=== PATIENT | male | born 1965 | race Caucasian/White ===

== ENCOUNTER 2020-04-24 23:12 | Emergency (ER) | payer MEDICARE, SELFPAY ==
[2018-05-26 12:41] VITALS: BMI 47.2
[2020-04-24 23:13] VITALS: BP 136/68; PULSE 73; RESP 18; TEMP 36.4; O2SAT 94; BMI 44.7
--- NOTE | 2020-04-24 23:25 | EKG12_ITS ---
Test Reason : CHEST DISCOMFORT Blood Pressure : / mmHG Vent. Rate : 068 BPM Atrial Rate : 068 BPM P-R Int : 278 ms QRS Dur : 090 ms QT Int : 388 ms P-R-T Axes : -06 - - degrees QTc Int : 412 ms Sinus rhythm with 1st degree A-V block Otherwise normal ECG Confirmed by NADER GARCIA, MARIA A ([id number]), editorial director RITCHIE KANG ([id number]) on 04/28/2020 12:32:30 PM Referred By: STORMY Confirmed By:MARIA A DOE MD
--- NOTE | 2020-04-24 23:26 | ED.DCSUM_ITS ---
History of Present Illness Chief Complaint: Chest Pain Informant: Patient Onset: Today Location: Substernal, Left Chest Narrative: Patient is a 54-year-old male with history of diabetes, obesity, hypertension, hyperlipidemia and a heart attack 13 years ago resenting after an episode of feeling like his heart stopped. Patient was getting out of bed to use the restroom when he suddenly felt that his heart stopped. The sensation scared him and he called 911. Patient has a hard time describing the sensation. Does not really describe pain. Patient notes he has had a cough for the past 3 days. He states he has chronic lung disease from a chemical exposure remotely. Patient notes that last week there was a propane leak in their house and he was exposed to propane for 11 days before they could figure it out. Patient notes has been more constipated but denies any abdominal pain. Denies any change in his appetite. He denies any urinary symptoms. No fever or chills. Patient did feel that he was a little clammy when he got out of bed but not sure if there is something going on with him or it was just because he had kicked off all of the blankets and went from being hot to cold. Past Medical History - Allergies and Home Meds Allergies/Adverse Reactions: Allergies amoxicillin Adverse Reaction (Verified 04/24/20 23:16) Rash cephalexin monohydrate [From Keflex] Adverse Reaction (Verified 04/24/20 23:16) Rash Penicillins Adverse Reaction (Verified 04/24/20 23:16) Rash Primary Care Physician: Rolan Harper CHEMICAL RECOVERY OPERATOR, CHEMICAL RECOVERY OPERATOR-C [Primary Care Provider] - Past Medical History: - - Coronary artery disease, hypertension, hyperlipidemia, diabetes mellitus, COPD Surgical History: noncontributory Lives: Spouse/ Significant Other Smoking Status: Never smoker Review of Systems General: Denies: Chills, Fever, Malaise, Sweats Eyes: Denies: Visual changes - bilaterally, Diplopia ENT: Denies: Rhinorrhea, Sore throat Cardiovascular: Reports: Chest pain. Denies: Palpitations, Heart racing Respiratory: Reports: Cough. Denies: Dyspnea, Dyspnea on exertion Gastrointestinal: Reports: Constipation. Denies: Abdominal pain, Nausea, Vomiting, Diarrhea, Melena, Hematochezia Genitourinary: Denies: Dysuria, Hematuria, Frequency Musculoskeletal: Denies: Back pain, Extremity Pain Skin: Denies: Rash, Wounds Neurological: Denies: Headache, Weakness, Numbness Physical Exam Vital Signs/Narrative: Vital Signs Temp Pulse Resp BP Pulse Ox 04/24/20 23:13 97.6 F L 73 18 136/68 H 94 Inital Vital Signs reviewed: Yes General: Well nourished, Well developed, Obese, No Acute Distress Head: Normocephalic, Atraumatic Eyes: Perrl, EOMI ENT: Moist mucous membranes, No rhinorrhea Neck: Supple, Nontender, No JVD Cardiovascular: Regular rate, Regular rhythm, No murmurs Respiratory: No distress, CTA bilaterally, Chest nontender. Negative for: Wheezing, Diminished Abdomen: Soft, Nontender, Nondistended, Normal bowel sounds. Negative for: Guarding, Rebound tenderness Back: Nontender, Normal Inspection Extremities: Nontender, No edema Skin: Normal color, No rash Neurological: Alert, Oriented x3, Cranial nerves II-XII grossly intact, Normal Strength, Normal Sensation Psychological: Normal affect, Normal Mood Diagnostic/Tx/Re-eval Chest X-Ray - ED: 1 View, Read by ED Physician, Right Infiltrate Clinical Impression(s) from Imaging Studies Chest X-Ray 04/24/20 23:35 IMPRESSION: Right basilar infiltrate Electronically Signed: Yuri Lozano DO at 0:00 EST Tel , Service support , Laboratory Data 04/24/20 04/24/20 04/24/20 23:15 23:15 23:15 WBC 6.3 RBC 5.43 Hgb 16.2 Hct 48.6 MCV 89.5 MCH 29.8 MCHC 33.3 RDW Std Deviation 42.1 RDW Coeff of Fox 12.8 Plt Count 204 MPV 10.2 Immature Gran % (Auto) 0.900 Neut % (Auto) 44.5 L Lymph % (Auto) 37.9 Giles % (Auto) 14.1 H Eos % (Auto) 2.1 Baso % (Auto) 0.5 Absolute Neuts (auto) 2.8 Absolute Lymphs (auto) 2.40 Nucleated RBC % 0 Sodium 140 Potassium 3.5 Chloride 104 Carbon Dioxide 29.0 Anion Gap 7 BUN 14 Creatinine 0.87 Estim Creat Clear Calc 99.06 Est GFR (MDRD) Af Amer 117 Est GFR (MDRD) Non-Af 97 BUN/Creatinine Ratio 16.1 Glucose 138 H Calcium 8.4 L Troponin I < 0.015 B-Natriuretic Peptide 5.5 - Rhythm Strip Rhythm Strip: Sinus Rhythm Rate: 68 Ectopy: None - EKG Initial EKG Interpretation: Sinus Rhythm, - - Medical Decision Making Patient evaluated after an episode of feeling like his heart stopped. He did not actually have any chest pain associated with it but is unable to elaborate further. His EKG does not show any acute changes. He is asymptomatic in the ER. He notes he had a cough for 3 days. Chest x-ray shows a right lower lobe infiltrate. Covid test is positive. Patient is ambulate in the ER does not have any hypoxia. He does not have any leukocytosis or other significant electrolyte abnormalities. I have a low suspicion for an actual cardiac event. I suspect his presentation is more consistent with pneumonia and Covid. Patient is not wheezing and has clear breath sounds. I do not think steroids are indicated. He does not require admission at this time. He will be discharged home with a course of doxycycline as I do question of there is a superimposed bacterial pneumonia. Patient is counseled on signs and symptoms requiring return to the emergency room. Encouraged to use a pulse oximeter at home to monitor his O2 saturation. He is instructed to call his primary care doctor tomorrow. Patient verbalizes agreement and understand this plan. Patient discharged home in stable and improved condition. Patient is a candidate for monoclonal antibody therapy. This is arranged prior to his discharge. ED Disposition - Plan for ED Patient: Disposition: Home or Assisted Living Diagnosis: RLL pneumonia, COVID-19 Instructions: Coronavirus Disease 2019 (COVID-19): Overview, Coronavirus Disease 2019 (COVID-19): Caring for Yourself or Others Prescriptions: Doxycycline 100 mg PO BID #13 cap Transmission Status: Received by [id number] Referrals: Rolan Harper NP, CHEMICAL RECOVERY OPERATOR-C [Primary Care Provider] - Additional Instructions: Please return the emergency room if you have any worsening symptoms including difficulty breathing, chest pain or signs of dehydration. Drink lots of fluids. Alternate Tylenol ibuprofen as needed for any symptoms. Use your nebulizer at home as needed. Quarantine for total 14 days from onset of symptoms.
[2020-04-24] MEDS: Aspirin 81 MG TAB.CHEW 324 MG PO (23:31)
--- NOTE | 2020-04-24 23:35 | RAD_ITS ---
STUDY: X-RAY CHEST REASON FOR EXAM: Male, 54 years old. chest pain. PT woke up tonight and had heart palpitations. Palpitations were worse upon standing. Hx of previous heart attack. TECHNIQUE: Single AP portable view of the chest. COMPARISON: 12/24/2015 FINDINGS: Right basilar infiltrate. Lungs are otherwise clear. There is no demonstrated pleural abnormality. Normal size heart. Normal mediastinum and jarrod. Normal visualized pulmonary arteries. Normal visualized aortic arch and descending thoracic aorta. Normal visualized thoracic spine. Normal visualized ribs, clavicles, and shoulders. There is no demonstrated abnormality of the visualized soft tissue structures of the upper abdomen. RAD/Chest 1 View (Portable) IMPRESSION: Right basilar infiltrate Electronically Signed: Yuri Lozano DO at 0:00 EST Tel , Service support ,
[2020-04-24 23:43] LABS: Absolute Neutrophil Count 2.8 X10^3/uL (2.0-7.7); Basophil# 0.03 X10^3/uL; Basophil% 0.5 % (0-1); Eosinophil# 0.13 X10^3/uL; Eosinophils% 2.1 % (0-5); Hematocrit 48.6 % (40-54); Hemoglobin 16.2 g/dL (13.0-16.5); Lymphocyte % 37.9 % (19-41); Mean Corp Hgb Conc 33.3 g/dL (32-36); Mean Corpuscular Hgb 29.8 pg (27.0-32.0); Mean Corpuscular Volume 89.5 fL (80-94); Mean Platelet Vol. 10.2 fl (6.2-12.0); Monocyte# 0.89 X10^3/uL; Monocyte% 14.1 % (0-10); NRBC Flagged by Analyzer 0 % (0-5); Neutrophil # 2.82 X10^3/uL (2.7-7.7); Neutrophil % 44.5 % (47-70); Platelet Count 204 K/mm3 (150-450); RBC Distribution Width CV 12.8 % (11.6-14.6); RBC Distribution Width SD 42.1 fl (35.1-43.9); Red Blood Count 5.43 M/mm3 (4.6-6.2); White Blood Count 6.3 K/mm3 (4.4-11.0)
[2020-04-24 23:47] LABS: Anion Gap 7 (5-15); BUN 14 mg/dL (7-18); BUN/Creat Ratio 16.1 RATIO (10-20); Calcium,Total 8.4 mg/dL (8.5-10.1); Chloride 104 mmol/L (98-107); Creatinine, Serum 0.87 mg/dL (0.70-1.30); EST Glomerular Filtration Rate 97 mL/min (>60); Est Glom Filt Rate - Afr Amer 117 mL/min (>60); Estimated Creatinine Clearance 99.06 ml/min; Glucose 138 mg/dL (74-106); Potassium 3.5 mmol/L (3.5-5.1); Sodium Level 140 mmol/L (136-145)
[2020-04-25 00:07] LABS: BNP,B-Type NATRIURETIC PEPTIDE 5.5 pg/mL (0-100)
[2020-04-25 00:13] VITALS: BP 121/67; PULSE 65; RESP 18; O2SAT 98
[2020-04-25 00:49] VITALS: O2SAT 97
[2020-04-25 01:00] VITALS: BP 120/65; PULSE 70; RESP 19; O2SAT 97
[2020-04-25] MEDS: Doxycycline 100 MG CAPSULE PO (01:54)
== END 2020-04-25 01:56 | disposition home or self-care (01) ==
PROVIDERS: Emergency Provider Emergency Medicine; PCP Nurse Practitioner Primary Care
DX: U07.1 COVID-19 (principal); J12.82 Pneumonia due to coronavirus disease 2019; J44.0 Chronic obstructive pulmonary disease with (acute) lower respiratory infection; I25.10 Atherosclerotic heart disease of native coronary artery without angina pectoris; E11.9 Type 2 diabetes mellitus without complications; I10 Essential (primary) hypertension; E78.5 Hyperlipidemia, unspecified; K59.00 Constipation, unspecified; E66.9 Obesity, unspecified; Z79.899 Other long term (current) drug therapy; I25.2 Old myocardial infarction
CPT/HCPCS: 71045; 80048; 83880; 84484; 85025; 87426; 93005; 99285; A4216

== ENCOUNTER → 2021-10-26 | Outpatient (CLI) | payer MEDICARE, SELFPAY ==
[2021-10-26 08:30] LABS: CREATININE FINGERSTICK < 0.9 mg/dL (0.70-1.30); EGFR FINGERSTICK > 60.0000 mL/min (>60)
--- NOTE | 2021-10-26 08:30 | MRI_ITS ---
ACR Level 3 findings have been noted. An addendum which confirms receipt of the report will follow. MR Prostate WO/W Contrast 10/26/2021 8:19 AM COMPARISON: None CLINICAL HISTORY: 56-year-old male with elevated PSA. TECHNIQUE: Standard prostate MR protocol was used before and after administration of 27 cc of IV Clariscan. FINDINGS: Prostate volume: 56 cc PSA density: PSA level not provided. Post-biopsy hemorrhage: None Multiparametric MR evaluation: Heterogeneous appearance of the central gland is consistent with benign prostatic hyperplasia. Lesion 1: LOCATION - 3.4 x 3.7 x 1.9 cm moderately T2 hypointense smudgy region involving the bilateral anterior and posterior transitional zone from mid gland to near base and near apex (image 15, series 5).. It is bright on DWI and dark on ADC. T2 - 5 DWI - 5 DCE - positive Overall PI-RADS v2 score = 5 Capsular margin and neurovascular bundle: There is likely 4 to 5 mm of extraprostatic extension anteriorly into the anterior fibromuscular stroma. Seminal vesicles: No definite involvement. Lymph nodes: Prominent round 1.1 cm right external iliac node. Bones: No suspicious lesions in the field of view. MRI/Pelvis W/WO Contrast IMPRESSION: - 3.7 cm PI-RADS 5 lesion in the bilateral anterior and posterior TZ from mid gland to near base and near apex. - Likely 4 to 5 mm of extraprostatic extension anteriorly into the anterior fibromuscular stroma. - No definite evidence of seminal vesicle invasion. - Prominent round 1.1 cm right external iliac node. Close attention on follow-up. - No suspicious bone lesions. Electronically Signed: Dakotah Saldana MD at 18:53 EDT ,
== END | disposition home or self-care (01) ==
PROVIDERS: PCP Nurse Practitioner Primary Care; Referring Provider Urology; Visit Provider Urology
DX: R97.20 Elevated prostate specific antigen [PSA] (principal)
CPT/HCPCS: 72197; A9575

== ENCOUNTER → 2021-11-11 | Outpatient (CLI) | payer MEDICARE, SELFPAY ==
--- NOTE | 2021-11-11 | PROSBIL_PTH ---
PATIENT: KRISTINA GIBSON LOC: [facility] #:[id number] AGE/SX: 56/M ROOM: RE11/11/[address]: Dr. Jono Bermudez MD : 1965 BED: DIS: 11/11/2021 SPEC #: [id number] RECD: 11/11/21 15:00 STATUS: CORY LALITA #: [id number] VICTORIA: 11/11/21 00:[address]: Jono Bermudez DEPT: SURGICAL PATHOLOGY RECD BY: Cally Muhammad ENTERED: 11/12/21 09:49 SP TYPE: PROST BX KHALIDA DR: Rolan Harper, HUMBERTO-Kavya Tissues: A - PROSTATE RIGHT B - PROSTATE RIGHT C - PROSTATE RIGHT D - PROSTATE LEFT E - PROSTATE LEFT F - PROSTATE LEFT Procedures: PROSTATE BX HEADER OPERATION: Prostate biopsy PRE-OP DIAGNOSIS: Elevated PSA R97.20 TISSUE SUBMITTED: A - Right apex, B - Right mid, C - Right base, D - Left apex, E - Left mid, F - Left base MICROSCOPIC DIAGNOSIS A. Right prostate, apex, core biopsy: Prostatic adenocarcinoma. Northfield grade: 4+3=7 Number of cores involved: 2/2 Proportion of tissue involved: ~5-10% Perineural invasion: Not identified. Greatest tumor length: 0.2 cm See comment. B. Right prostate, mid, core biopsy: Focal high-grade prostatic intraepithelial neoplasia (HGPIN). C. Right prostate, base, core biopsy: Prostatic adenocarcinoma. Jamari grade: 3+3=6 Number of cores involved: 1/2 Proportion of tissue involved: ~25% Perineural invasion: Not identified. Greatest tumor length: 0.5 cm D. Left prostate, apex, core biopsy: Prostatic adenocarcinoma. Northfield grade: 3+3=6 Number of cores involved: 2/2 Proportion of tissue involved: ~70% Perineural invasion: Not identified. Greatest tumor length: 1.1 cm E. Left prostate, mid, core biopsy: Prostatic tissue, negative for malignancy. Focal mild chronic inflammation. F. Left prostate, base, core biopsy: Prostatic adenocarcinoma. Northfield grade: 3+3=6 Number of cores involved: 1/2 Proportion of tissue involved: ~5% Perineural invasion: Not identified. Greatest tumor length: 0.2 cm Focal high-grade prostatic intraepithelial neoplasia (HGPIN). See comment. SJ:merrill 11/15/2021 COMMENT A & F. Immunohistochemistry ([id number]) supports the above diagnosis. Case has been reviewed in consultation with Dr. Valdez who concurs with the above diagnosis. IDC:AM MICROSCOPIC DESCRIPTION Slides are reviewed. GROSS DESCRIPTION A - Received is one container designated prostate, right apex. The specimen consists of two elongated fragments of light fowler-white soft tissue measuring 1.5 and 2 cm in length and 0.1 cm in diameter. The specimen is totally submitted in one cassette. B - Received is one container designated prostate, right mid. The specimen consists of two elongated fragments of light fowler-white soft tissue each measuring 1.7 cm in length and 0.1 cm in diameter. The specimen is totally submitted in one cassette. C - Received is one container designated prostate, right base. The specimen consists of two elongated fragments of light fowler-white soft tissue each measuring 1.5 cm in length and 0.1 cm in diameter. The specimen is totally submitted in one cassette. D - Received is one container designated prostate, left apex. The specimen consists of two elongated fragments of light fowler-white soft tissue each measuring 1.6 cm in length and 0.1 cm in diameter. The specimen is totally submitted in one cassette. E - Received is one container designated prostate, left mid. The specimen consists of two elongated fragments of light fowler-white soft tissue each measuring 2 cm in length and 0.1 cm in diameter. The specimen is totally submitted in one cassette. F - Received is one container designated prostate, left base. The specimen consists of two elongated fragments of light fowler-white soft tissue measuring 2 and 2.5 cm in length and 0.1 cm in diameter. The specimen is totally submitted in one cassette. / SJ:merrill 11/12/2021 TC:0 CPT: G0146 ADDENDUM ADDENDUM ADDENDUM ADDENDUM ADDENDUM ADDENDUM ADDENDUM ADDENDUM ADDENDUM ADDENDUM ADDENDUM ADDENDUM ADDENDUM ADDENDUM ADDENDUM ADDENDUM ADDENDUM ADDENDUM ADDENDUM ADDENDUM ADDENDUM ADDENDUM ADDENDUM ADDENDUM ADDENDUM 01/17/2022 09:06 ADDENDUM 01/17/2022 09:06 ADDENDUM 01/17/2022 09:06 ADDENDUM 01/17/2022 09:06 ADDENDUM 01/17/2022 09:06 This addendum is added to incorporate an outside pathology consultation report. The case was examined at [facility] (#[id number]) and the following diagnosis was rendered. A. Right prostate, apex, core biopsy: Prostatic adenocarcinoma, Jamari score 4+3=7 (Grade Group 3) involving two of two cores (10%, 1.5 mm, 5%, <1 mm) Small gland cribriform pattern 4 is identified. B. Right prostate, mid, core biopsy: Focal high-grade prostatic intraepithelial neoplasia. C. Right prostate, base, core biopsy: Prostatic adenocarcinoma, Northfield score 4+3=7 (Grade Group 2) involving one of two cores (35%, 4.5 mm) D. Left prostate, apex, core biopsy: Prostatic adenocarcinoma, Northfield score 3+3=6 (Grade Group 1) involving two of two cores (80%, 10.5 mm, 35%, 5 mm). E. Left prostate, mid, core biopsy: Benign prostatic tissue. F. Left prostate, base, core biopsy: Prostatic adenocarcinoma, Jamari score 3+3=6 (Grade Group 1) involving one of two cores (5%, 1 mm). Please see complete above mentioned consultation report in EMR
--- NOTE | 2021-11-11 | IMM_PTH ---
PATIENT: KRISTINA GIBSON LOC: [facility] U#:[id number] AGE/SX: 56/M ROOM: RE11/11/[address]: Dr. Jono Bermudez MD : 1965 BED: DIS: 11/11/2021 SPEC #: [id number] RECD: 11/15/21 11:56 STATUS: CORY REQ #: [id number] VICTORIA: 11/11/21 00:[address]: Jono Bermudez DEPT: IMMUNOHISTOCHEMISTRY RECD BY: Reema Coronado ENTERED: 11/15/21 11:58 SP TYPE: IMMUNO OTHR DR: Rolan Harper, INBOUND CALL CENTER AGENT-C Tissues: A - PROSTATE RIGHT F - PROSTATE LEFT Procedures: 34BE12 (add) P40 (add) 34BE12 (initial) PHYSICIAN & INSTITUTION [place] [id number] SPECIMEN INFORMATION: Tissue Source: A - Right prostate, apex, core biopsy, F - Left prostate, base, core biopsy Clinical Info: Elevated PSA Specimen Number: [id number] A & F CPT code: 98187, 63601 x3 METHODOLOGY: Deparaffinized sections of prefer/formalin-fixed tissue or PAP/DQ stained slides are incubated with monoclonal/polyclonal antibodies/oligonucleotide probes. Localization is made via biotin free immunoperoxidase method. Appropriate controls are performed and reacted as expected. Results on target cell population are indicated in the following table: RESULTS: ANTIBODY / CLONE RESULT Block A P40 (BC28) negative 34BE12 (34BE12) negative Block F P40 (BC28) negative 34BE12 (34BE12) negative These tests were developed and their performance characteristics determined by [facility]. They may not have been cleared or approved by the U.S. Food and Drug Administration. The FDA has determined that such clearance or approval is not necessary. The above immunohistochemical/dualISH markers are ordered and reviewed by the Pathologist. INTERPRETATION: A. Right prostate, apex, core biopsy: Adenocarcinoma. F. Left prostate, base, core biopsy: Adenocarcinoma. ISSAC:merrill 11/16/2021
== END | disposition home or self-care (01) ==
PROVIDERS: PCP Nurse Practitioner Primary Care; Visit Provider Urology
DX: C61 Malignant neoplasm of prostate (principal)
CPT/HCPCS: 88305; 88341; 88342; G0416

== ENCOUNTER 2022-08-01 15:54 | Emergency (ER) | payer OTHER, SELFPAY ==
[2022-08-01 15:55] VITALS: BP 128/88; PULSE 77; RESP 18; TEMP 36.3; O2SAT 98
--- NOTE | 2022-08-01 16:38 | EX.ED.GENINJ ---
HPI History of Present Illness Chief Complaint: Laceration Narrative Narrative: Patient presents with right lower extremity laceration after sinus started to lower. No other injury. He is able to ambulate, he said there is quite a bit of bleeding. [facility] Medical History Abnormal transrectal ultrasound of prostate Arthritis Asthma Back pain Chest pain Diabetes Elevated PSA Hemorrhoids HTN (hypertension) Lung disease SOB (shortness of breath) Stroke Home Medications empagliflozin 10 mg tablet (Jardiance) 10 mg PO QAM 07/16/17 [History Last Taken Unknown] fluticasone propionate 50 mcg/actuation blister powder for inhalation (Flovent Diskus) 1 inh inhalation BID 07/16/17 [History Last Taken Unknown] ipratropium 20 mcg-albuterol 100 mcg/actuation mist for inhalation 2 puff inhalation BID 07/16/17 [History Last Taken Unknown] modafinil 100 mg tablet 25 mg PO DAILY 07/16/17 [History Last Taken Unknown] irbesartan 150 mg tablet 150 mg PO DAILY 11/25/21 [History Last Taken Unknown] rosuvastatin 10 mg tablet 10 mg PO DAILY 11/25/21 [History Last Taken Unknown] azithromycin 250 mg tablet See Rx Instructions PO .COMPLEX #6 tabs 05/06/22 [Rx Last Taken Unknown] cholecalciferol (vitamin D3) 25 mcg (1,000 unit) capsule 25 mcg PO DAILY 05/06/22 [History Last Taken Unknown] promethazine-DM 6.25 mg-15 mg/5 mL oral syrup 5 ml PO Q6H PRN 05/06/22 [History Last Taken Unknown] Allergy/AdvReac Type Severity Reaction Status Date / Time amoxicillin AdvReac Rash Verified 08/01/22 15:57 cephalexin monohydrate AdvReac Rash Verified 08/01/22 15:57 [From Keflex] Penicillins AdvReac Rash Verified 08/01/22 15:57 Social History household members: spouse Smoking Status: Never smoker alcohol intake: never substance use type: does not use ROS ROS ED ROS Narrative Past medical history: none Medications: Reviewed Social history: Noncontributory Review of systems: Musculoskeletal: Leg pain and laceration as above Skin: Laceration as above Neurological: No weakness or paresthesias Hematologic: No easy bleeding or easy bruising EXAM Physical Exam Narrative Exam Narrative: Physical exam General: Patient does not appear in significant distress . Head: Normocephalic, Atraumatic Neck: No C-spine tenderness Cardiovascular: Normal distal pulses Back: Nontender, Normal Inspection. Extremities: Right lower tib-fib region shows an anterior horizontal 2.5 cm laceration. It is linear. No bony tenderness Skin: As above Neurological: Normal strength and sensation Const Vital Signs: 08/01/22 15:55 Temperature 97.3 F L Temperature Source Temporal Pulse Rate 77 Respiratory Rate 18 Blood Pressure 128/88 H Blood Pressure Mean 101 Pulse Ox 98 Oxygen Delivery Method Room Air PROC Procedures Lacerations Laceration : Length: 0.98 in Depth: Skin Shape: Linear Prep: Marvel-Estefany Laceration repair: Lidocaine (1% about 3 mL total) and Lidocaine with epi Number of Sutures/Thai: 3 Suture Information: Ethilon and 4-0 Comment: Wound approximated well. Verbal consent obtained. Patient tolerated procedure well. MDM MDM MDM Narrative Medical decision making narrative: Patient sustained an injury to the tibial region however he does not have any bony tenderness therefore an x-ray of the tib-fib is not warranted. There is no signs or symptoms of infection and prophylactic antibiotics are not warranted at this time. Tetanus is up-to-date. Wound was sutured. Wound care instructions were given. Patient be discharged in stable condition to follow-up with PCP for suture removal. Discharge Plan Triage Chief Complaint: Laceration ED Provider: Mandeep Hernandez Dx/Rx/DC Orders Clinical Impression: Contusion of leg, Laceration of leg Instructions: ED Laceration Extremity Prescriptions: No Action empagliflozin [Jardiance] 10 mg tablet 10 mg PO QAM fluticasone propionate [Flovent Diskus] 50 mcg/actuation blister with device 1 inh INHALATION BID modafinil 100 mg tablet 25 mg PO DAILY rosuvastatin 10 mg tablet 10 mg PO DAILY irbesartan 150 mg tablet 150 mg PO DAILY promethazine-DM 6.25-15 mg/5 mL syrup 5 ml PO Q6H PRN Label Comments: TAKE 5 ML BY MOUTH EVERY 6 HOURS NEEDED FOR COUGH FOR 7 DAYS cholecalciferol (vitamin D3) 25 mcg (1,000 unit) capsule 25 mcg PO DAILY azithromycin 250 mg tablet See Rx Instructions PO .COMPLEX Qty: 6 0RF Rx Instructions: take 500 mg today (day 1), then 250 mg for 4 days (days 2-5) PO ipratropium-albuterol 20-100 mcg/actuation mist 2 puff INHALATION BID Primary Care Provider: Rolan Harper NP Referrals: Rolan Harper APPAREL SALES LEADER, APPAREL SALES LEADER-C [Primary Care Provider] - 10-14 Days suture removal Disposition Disposition: Home, Self Care
[2022-08-01 16:57] VITALS: BMI 28.0
== END 2022-08-01 16:58 | disposition home or self-care (01) ==
LOC: ED 16:48
PROVIDERS: Emergency Provider Emergency Medicine; PCP Nurse Practitioner Primary Care; Visit Provider Emergency Medicine
DX: S81.811A Laceration without foreign body, right lower leg, initial encounter (principal); E11.9 Type 2 diabetes mellitus without complications; W26.8XXA Contact with other sharp object(s), not elsewhere classified, initial encounter; I10 Essential (primary) hypertension; Z79.899 Other long term (current) drug therapy; Z86.73 Personal history of transient ischemic attack (TIA), and cerebral infarction without residual deficits
CPT/HCPCS: 12001; 99282

== ENCOUNTER 2024-01-08 19:43 | Emergency (ER) | payer MEDICARE, SELFPAY ==
[2024-01-08] VITALS (11 sets, daily range): BP systolic 132–163; BP diastolic 71–85; PULSE 87–103; RESP 12–19; TEMP 36.6; O2SAT 93–100; BMI 41.8
--- NOTE | 2024-01-08 19:54 | EKG12_ITS ---
Test Reason : Blood Pressure : */* mmHG Vent. Rate : 97 BPM Atrial Rate : 97 BPM P-R Int : 194 ms QRS Dur : 82 ms QT Int : 344 ms P-R-T Axes : 5 -28 52 degrees QTcB Int : 436 ms Normal sinus rhythm Normal ECG Confirmed by KRISHNA GARCIA, DAVID ([id number]), proposal editor RITCHIE KANG ([id number]) on 01/09/2024 1:53:50 PM Referred By: Confirmed By: DAVID KELLER MD
--- NOTE | 2024-01-08 20:05 | RAD_ITS ---
INDICATION: chest pain EXAMINATION/TECHNIQUE: X-RAY - XR Chest 2 Views COMPARISON: FINDINGS: LINES/DEVICES: None. LUNGS: No consolidation, edema or effusion. No pneumothorax. MEDIASTINUM AND CARDIOVASCULAR STRUCTURES: Cardiac silhouette not enlarged. Central airways and mediastinal contour are unremarkable. BONES AND SOFT TISSUES: Degenerative vertebral changes. RAD/Chest PA and Lateral IMPRESSION: No radiographic evidence of acute cardiopulmonary disease. Electronically Signed: Moreno Morin DO at 20:50 EST Reading Location ID and State: [facility] / [place] Tel [phone], Service support ,
[2024-01-08 20:11] LABS: Absolute Lymphocyte Count 2.76 X10^3/uL (0.83-4.51); Absolute Neutrophil Count 7.6 X10^3/uL (2.0-7.7); Basophil# 0.09 X10^3/uL; Basophil% 0.8 % (0-1); Eosinophil# 0.23 X10^3/uL; Hematocrit 49.2 % (40-54); Hemoglobin 16.7 g/dL (13.0-16.5); Lymphocyte # 2.76 X10^3/ul (0.83-4.51); Lymphocyte % 23.5 % (19-41); Mean Corp Hgb Conc 33.9 g/dL (32-36); Mean Corpuscular Volume 88.5 fL (80-94); Mean Platelet Vol. 9.2 fl (6.2-12.0); Monocyte# 1.05 X10^3/uL; Monocyte% 8.9 % (0-10); NRBC Flagged by Analyzer 0 % (0-5); Neutrophil # 7.59 X10^3/uL (2.7-7.7); Neutrophil % 64.5 % (47-70); Platelet Count 219 K/mm3 (150-450); RBC Distribution Width CV 12.9 % (11.6-14.6); RBC Distribution Width SD 41.6 fl (35.1-43.9); Red Blood Count 5.56 M/mm3 (4.6-6.2); White Blood Count 11.8 K/mm3 (4.4-11.0)
[2024-01-08 20:33] LABS: Anion Gap 9 (5-15); BNP,B-Type NATRIURETIC PEPTIDE 10.4 pg/mL (0-100); BUN 13 mg/dL (7-18); BUN/Creat Ratio 15.6 RATIO (10-20); Calcium,Total 9.3 mg/dL (8.5-10.1); Chloride 104 mmol/L (98-107); Creatinine, Serum 0.84 mg/dL (0.70-1.30); EST Glomerular Filtration Rate 100 mL/min (>60); Est Glom Filt Rate - Afr Amer 121 mL/min (>60); Estimated Creatinine Clearance 129.54 ml/min; Glucose 231 mg/dL (74-106); Potassium 3.8 mmol/L (3.5-5.1); Sodium Level 138 mmol/L (136-145); Troponin-I HS (w/2H Reflex) 3 pg/mL (3.0-78.0)
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
[2024-01-08 22:07] LABS: Reflex Troponin-HS? (from REC) Y
[2024-01-08 22:26] LABS: Troponin-I HS (w/2H Reflex) 4 pg/mL (3.0-78.0)
[2024-01-08] MEDS: Ipratropium/Albuterol Sulfate 3 ML AMPUL.NEB INHALATION (22:37)
[2024-01-08] MEDS: predniSONE 20 MG Tablet 60 MG PO (22:48)
== END 2024-01-08 22:50 | disposition home or self-care (01) ==
PROVIDERS: Emergency Provider Emergency Medicine; PCP Nurse Practitioner Primary Care; Visit Provider Emergency Medicine
DX: R06.02 Shortness of breath (principal); E11.9 Type 2 diabetes mellitus without complications; R07.89 Other chest pain; I10 Essential (primary) hypertension; Z79.84 Long term (current) use of oral hypoglycemic drugs; Z79.899 Other long term (current) drug therapy
CPT/HCPCS: 71046; 80048; 83880; 84484; 85025; 93005; 94640; 99284

== ENCOUNTER 2024-06-20 13:11 | Emergency (ER) | payer MEDICARE, SELFPAY ==
[2024-06-20 13:12] VITALS: BP 121/58; PULSE 62; RESP 19; TEMP 36.7; O2SAT 97; BMI 41.3
--- NOTE | 2024-06-20 13:40 | EDS_ITS ---
HPI History of Present Illness Chief Complaint: Back Informant: patient Onset/Context/Timing Onset: Today Injury: direct trauma Timing: Continuous Quality: Sharp Location: Left Leg Current Severity: Gone Maximum Severity: Moderate Worsened by: improves with Movement Relieved by: Nothing Associated Symptoms Associated Symptoms: Radiation to Left Leg; Negative for Fever, Abdominal Pain, Dysuria, Unable to Ambulate, Unable to Transfer, Urinary Retention, Urinary Incontinence, Constipation or Fecal Incontinence Narrative Narrative: 58-year-old male with prior history of degenerative disc disease 3. Saw manpower development specialist [facility] a year or so ago. Was treated physical therapy and improved. Never had back surgery. States when he got up this morning he had significant low back pain that made him crawl on all fours. Denies any bowel or bladder incontinence or retention. Denies any fever. No fall or trauma. Denies any fever. When he was treated before it was physical therapy he had limited pain medications and steroids. Prior similar symptoms: Yes and With Prior Back Pain Recent Illness/Hospitalization: No PFSH [facility] Medical History Elevated PSA Abnormal transrectal ultrasound of prostate Back pain Asthma Stroke Chest pain Diabetes Hemorrhoids SOB (shortness of breath) Lung disease Arthritis HTN (hypertension) Home Medications ?Medication ?Instructions ?Recorded ?Last Taken ?Type ipratropium 20 mcg-albuterol 100 2 puff inhalation BID 07/16/17 Unknown History mcg/actuation mist for inhalation irbesartan 150 mg tablet 150 mg PO DAILY 11/25/21 Unk nown History rosuvastatin 10 mg tablet 10 mg PO DAILY 11/25/21 Unkn own History cyclobenzaprine 10 mg tablet 10 mg PO TID PRN back stephon n 01/08/24 Unknown History empagliflozin 25 mg tablet 25 mg PO DAILY 01/08/24 Unk nown History (Jardiance) fluticasone furoate 100 1 inh inhalation DAILY 01/07 Unknown History mcg/actuation blister powder for inhalation (Arnuity Ellipta) gabapentin 300 mg capsule 300 mg PO BID PRN pain 01/07 Unknown History prednisone 50 mg tablet 50 mg PO DAILY 5 days #5 tab s 01/08/24 Unknown Rx hydrocodone 10 mg-acetaminophen 1 tab PO Q6H PRN pain 3 days #10 06/20/24 Unknown Rx 300 mg tablet tabs hydrocodone 10 mg-acetaminophen 1 tab PO Q8H PRN pain 3 days #10 06/20/24 Unknown Rx 325 mg tablet tabs prednisone 20 mg tablet 40 mg (2 x 20 mg) PO DAILY 7 days 06/20/24 Unknown Rx #14 tabs Allergy/AdvReac Type Severity Reaction Status Date / Time amoxicillin AdvReac Rash Verified 06/20/24 13:15 cephalexin monohydrate (From AdvReac Rash Verified 06/20/24 13:15 Keflex) Penicillins AdvReac Rash Verified 06/20/24 13:15 Social History household members: spouse Smoking Status: Never smoker alcohol intake: never substance use type: does not use ROS ROS ED ROS Narrative 58-year-old male sitting upright in bed. Currently no acute distress. at bedside. Vital signs are stable afebrile. H EENT exam pupils round react light. Moist mucous membranes. No trauma. Neck nontender. Lungs clear to auscultation bilaterally. Heart regular rhythm no murmur. Chest wall ribs nontender. Abdomen soft nontender. No peritoneal signs. Moving all 4 extremities. Neurovascularly intact. 5 out of 5 front line leader strength. Dorsi plantarflexion intact. Negative straight leg raise bilaterally. No cauda equina. No saddle anesthesia. Normal medial thigh sensation. Normal flexion extension. Can lift either leg off the bed. He has mild left SI tenderness. No ecchymosis or bruising. No redness or warmth. Neurologically is awake alert. No focal motor or sensory deficits. Normal strength and sensation in all 4 extremities. Constitutional Constitutional ED: Denies chills or fever(s) Eyes Eyes: Denies blurry vision ENT ENT ED: Denies ear pain Cardiovascular Cardiovascular: Denies chest pain Respiratory/Chest Respiratory/Chest: Denies dyspnea Gastrointestinal Gastrointestinal: Denies abdominal pain, constipation, diarrhea, melena, nausea or vomiting Genitourinary Genitourinary ED: Denies dysuria, hematuria or urinary frequency Musculoskeletal Musculoskeletal: Reports back pain; Denies arthralgias, myalgias or neck pain Integumentary Denies abscess Neurologic Neurologic: Denies headache(s) Psychiatric Psychiatric: Denies anxiety Endocrine Endocrinology: Denies cold intolerance or heat intolerance Hematologic/Lymphatic Hematologic/Lymphatic: Denies easy bleeding or easy bruising Allergic/Immunologic Allergic/Immunologic ED: Denies mouth swelling or tongue swelling EXAM Physical Exam Narrative Exam Narrative: 58-year-old male vital signs stable afebrile. H EENT exam normal. Neck nontender. Lungs clear to auscultation bilaterally. Heart regular rhythm no murmur. Rate about 60. Chest wall ribs nontender. Abdomen soft nontender. Moving all 4 extremities. 5 out of 5 front line leader. 5 out of 5 dorsi plantarflexion intact. No cauda equina. No saddle esthesia. Negative straight leg raise. Normal flexion extension of both hips knees and ankles. Back no spine tenderness. Mild left SI tenderness. No ecchymosis or bruising. No redness or warmth. Neurologic exam normal. NIH 0. GCS 15. Normal strength and sensation. Const Vital Signs: 06/20/24 13:12 Temperature 98.1 F Temperature Source Oral Pulse Rate 62 Respiratory Rate 19 H Blood Pressure 121/58 H Blood Pressure Mean 79 Pulse Ox 97 Oxygen Delivery Method Room Air Positive well nourished and well developed; Negative for cachectic, contractures or unkempt General Appearance ED: well developed and NAD; Negative for unkempt, cachectic, contractures or pallor Nutritional Appearance: Negative for cachectic HEENT Reports moist mucous membranes Negative for trauma or tenderness Eyes PERRL and EOMs intact bilaterally Neck no lymphadenopathy, supple and no JVD Resp normal respiratory effort and clear to auscultation bilaterally Cardio regular rate, regular rhythm, S1 normal heart sound, S2 normal heart sound and no murmurs Palpation: Negative for palpable S3 Rate: Negative for bradycardia or tachycardic Rhythm: Negative for abnormal rhythm Bruits: Negative for other GI normal to inspection, nondistended, normoactive bowel sounds, soft to palpation, non-tender, non-distended and no masses Palpation: Negative for tender, guarding or rebound tenderness present Back/Spine normal to inspection and no thoracic nor lumbar tenderness Back/Spine Narrative: Mild left SI tenderness. No spine tenderness. Cervical Spine: Negative for cervical spine tenderness Thoracic Spine / Upper Back: Negative for paraspinal muscle tenderness Extremity normal to inspection and no clubbing, cyanosis or edema General Extremety ED: Negative for edema or tenderness General Extremity: Negative for edema Neuro oriented x3 and no sensory deficits noted Sensorium / Orientation: Negative for alert, confused, lethargic or stuporous Motor Exam: strength 5/5 throughout Psych mental status grossly normal Appearance: Negative for unkempt Attitude: No agitated Mood & Affect: Negative for depressed, sad or tearful Skin no rashes or lesions noted and no wounds General Skin Exam: Negative for jaundice or pallor Lesions: No lesion noted Rashes: No rashes noted Trauma: Negative for abrasion or puncture Wounds: Negative for wounds noted MDM MDM MDM Narrative Medical decision making narrative: 58-year-old male history of degenerative disc disease of L3 no prior surgery. Previously treated with physical therapy. Exam is benign otherwise. Good motor strength. No cauda equina or saddle anesthesia. Does not need a stat MRI. We try to get him up standing manage significant pain I will be given IM injection of morphine, Toradol p.o. Zofran and prednisone. Reassessed if he can ambulate OB discharged to home with limited hydrocodone for pain prednisone 40 mg a day for 1 week. Outpatient follow-up with primary care physician if not improving he may need physical therapy if not improving may need to follow-up with his spine physician at the [facility]. Repeat exam at 2:45 PM patient said his pain was better with the IM shot but it still hurts to move but given IV morphine and rechecked. Patient still in pain. He can physically stand he has good strength in his legs. Again no cauda equina. But he does not want a walk because of the pain. He has gotten a total of 22 mg of morphine 10 IM and 6 and 6 for total of 12 IV. I did speak to MRI they can do an MRI around 5:00. That will be checked out to the afternoon physician to check the MRI and make final disposition. History & Record Review Discussion w/independent historian: Patient and Family Additional record(s) reviewed:: Prior inpatient record, Prior outpatient record, Prior ED visit and Prior labs Discharge Plan Triage Chief Complaint: Back ED Provider: Elijah Mcdaniel Dx/Rx/DC Orders Clinical Impression: Back pain, History of degenerative disc disease, History of diabetes mellitus Instructions: ED Back Pain (Acute or Chronic) Prescriptions: New prednisone 20 mg tablet 40 mg PO DAILY 7 Days Qty: 14 0RF hydrocodone-acetaminophen 10-300 mg tablet 1 tab PO Q6H PRN (Reason: pain) 3 Days Qty: 10 0RF hydrocodone-acetaminophen 10-325 mg tablet 1 tab PO Q8H PRN (Reason: pain) 3 Days Qty: 10 0RF No Action rosuvastatin 10 mg tablet 10 mg PO DAILY irbesartan 150 mg tablet 150 mg PO DAILY ipratropium-albuterol 20-100 mcg/actuation mist 2 puff INHALATION BID cyclobenzaprine 10 mg tablet 10 mg PO TID PRN (Reason: back pain) gabapentin 300 mg capsule 300 mg PO BID PRN (Reason: pain) Jardiance 25 mg tablet 25 mg PO DAILY Arnuity Ellipta 100 mcg/actuation blister with device 1 inh INHALATION DAILY prednisone 50 mg tablet 50 mg PO DAILY 5 Days Qty: 5 0RF Primary Care Provider: Rolan Harper NP Referrals: Rolan Harper NP, EDUCATION AND OUTREACH COORDINATOR-C [Primary Care Provider] - As Needed Activity Restrictions/Additional Instructions: Back pain either secondary to sciatica or your degenerative disc disease. Follow-up with your primary care provider for physical therapy. I will start you on prednisone 40 mg a day starting tomorrow first dose given here. Hydrocodone for severe pain. Otherwise Motrin and Tylenol. Follow-up with your spine surgeon from the [facility] Dr. Montoya if not improving. If getting worse increasing pain, fever, bowel or bladder incontinence or weakness to your leg he will need further evaluation and possible MRI. Print Language: Ivorian Disposition Disposition: Home, Self Care
[2024-06-20] MEDS: morphine 10 MG/ML Syringe IM (13:48)
[2024-06-20] MEDS: Ketorolac 60 MG/2 ML Vial IM (13:48)
[2024-06-20] MEDS: Ondansetron ODT 4 MG Tablet PO (13:48)
[2024-06-20] MEDS: predniSONE 20 MG Tablet 60 MG PO (13:48)
[2024-06-20] MEDS: morphine 8 MG/ML Syringe 6 MG IV (15:00)
--- NOTE | 2024-06-20 15:40 | MRI_ITS ---
EXAM: MRI lumbar spine without contrast. CLINICAL HISTORY: Back pain COMPARISON: None TECHNIQUE: Multiplanar multisequence MRI of the lumbar spine, without contrast. FINDINGS: There is normal lumbar lordosis. The lumbar vertebral bodies are normal in height. No evidence of compression fracture. Alignment is normal. No listhesis. The bone marrow signal is unremarkable. There is no abnormal bone STIR signal. The included distal thoracic cord is normal in caliber and signal. The conus medullaris terminates at L1 level. There is no clumping of the nerve roots. Multilevel degenerative changes of the lumbar spine, including disc bulges, facet degenerative changes, endplate remodeling and ligamentum flavum hypertrophy. T12/L1: Small disc bulge without significant facet degenerative changes. No significant neural foraminal narrowing. L1/2: Small circumferential disc bulge, ligamentum flavum hypertrophy and facet degenerative changes with mild canal stenosis. Neural foramina are patent.. L2/3: Disc bulge slightly asymmetric to the left, ligamentum flavum hypertrophy and facet degenerative changes with mild canal stenosis. Mild right neural foraminal narrowing. Right neural foramen is patent.. L3/4: Circumferential disc bulge, with superimposed asymmetric right disc protrusion, ligamentum flavum hypertrophy and facet degenerative changes with moderate canal stenosis. Additionally, inferior to the left neural foramina (series 10 image 22), there is a 12 x 8 mm extruded disc with asymmetric mass effect on the thecal sac with resultant moderate stenosis. [id number]-left moderate neural foraminal narrowing.. L4/5: Circumferential disc bulge, facet degenerative changes and ligamentum flavum hypertrophy with flattening of the thecal sac. No significant canal stenosis. Mild bilateral neural foraminal narrowing.. L5/S1: Circumferential disc bulge, facet degenerative changes and ligamentum flavum hypertrophy without significant canal stenosis. Moderate right and mild left neural foraminal narrowing.. The visualized prevertebral and paraspinal soft tissues are unremarkable. MRI/Spine Lumbar (Routine) IMPRESSION: 1. No acute fracture or traumatic subluxation. 2. Multilevel degenerative changes with up to moderate canal stenosis and neura l foraminal narrowing most prominent at L3-L4. Findings are further accentuated at L3-L4 by a 12 x 8 mm extradural disc inferi or to the left neural foramen. Reading Location: [facility]
[2024-06-20 19:56] VITALS: BP 146/83; PULSE 76; RESP 18; TEMP 36.8; O2SAT 97
== END 2024-06-20 19:57 | disposition home or self-care (01) ==
PROVIDERS: Emergency Provider Surgery; PCP Nurse Practitioner Primary Care; Visit Provider Surgery
DX: M51.16 Intervertebral disc disorders with radiculopathy, lumbar region (principal); E11.9 Type 2 diabetes mellitus without complications; I10 Essential (primary) hypertension; Z79.84 Long term (current) use of oral hypoglycemic drugs; Z79.899 Other long term (current) drug therapy
CPT/HCPCS: 72148; 96372; 96374; 99284; A4216